=== PATIENT | male | born 1995 | race Caucasian/White ===

== ENCOUNTER 2024-07-31 07:42 | Emergency (ER) | payer SELFPAY ==
[2024-07-31 07:43] VITALS: BP 138/91; PULSE 102; RESP 16; TEMP 37.2; O2SAT 100; BMI 22.1
--- NOTE | 2024-07-31 08:00 | EX.ED.DYSGE1 ---
HPI History of Present Illness Chief Complaint: General Illness Informant: patient Narrative Narrative: Healthy 29-year-old 3-4 days of subjective fevers and chills, generalized weakness, myalgias, headaches, rhinorrhea, nasal congestion, cough. No dyspnea. No chest discomfort. No GI symptoms. Has been around someone else with cold symptoms recently. Has not done any home testing yet. PFSH PFSH Medical History no medical history no medical history Allergy/AdvReac Type Severity Reaction Status Date / Time pineapple Allergy Intermediate Hives Verified 07/31/24 07:47 Social History Smoking Status: Current every day smoker tobacco type: e-cigarettes ROS ROS ED Constitutional Constitutional ED: Reports body ache(s), chills, fever(s), subjective and weakness ENT ENT ED: Reports nasal congestion and rhinorrhea; Denies ear pain, sinus pain or sore throat Cardiovascular Cardiovascular: Denies chest pain or palpitations Respiratory/Chest Respiratory/Chest: Reports cough; Denies dyspnea Gastrointestinal Gastrointestinal: Denies abdominal pain, diarrhea, nausea or vomiting Genitourinary Genitourinary ED: Denies dysuria or hematuria Musculoskeletal Musculoskeletal: Reports myalgias; Denies back pain or neck pain Integumentary Denies abscess or rash Neurologic Neurologic: Reports headache(s); Denies paresthesias or weakness Endocrine Endocrinology: Denies polydipsia or polyuria EXAM Physical Exam Const Vital Signs: 07/31/24 07:43 Temperature 99 F Temperature Source Oral Pulse Rate 102 H Respiratory Rate 16 Blood Pressure 138/91 H Blood Pressure Mean 106 Pulse Ox 100 Oxygen Delivery Method Room Air Positive well nourished and well developed General Appearance ED: well developed and NAD HEENT Reports moist mucous membranes HEENT Narrative: nml speech, no stridor normocephalic and atraumatic Eyes PERRL and EOMs intact bilaterally Neck no lymphadenopathy, supple and no meningeal signs Resp normal respiratory effort and clear to auscultation bilaterally Cardio no murmurs Rate: regular rate; Negative for tachycardic Rhythm: regular rhythm Neuro oriented x3, CN's II-XII intact bilaterally and no sensory deficits noted Sensorium / Orientation: alert Motor Exam: strength 5/5 throughout Psych mental status grossly normal Skin Lesions: no lesions Rashes: no rashes MDM MDM MDM Narrative Medical decision making narrative: Patient's exam is benign, his pulse ox is 100 on room air, and his symptoms are consistent with a viral syndrome, such as COVID. Performed COVID/influenza/RSV swab and he was amenable to a dose of Toradol. The swab is positive for RSV. Given appropriate discharge instructions. Discharge Plan Triage Chief Complaint: General Illness ED Provider: Jesse Mabry Dx/Rx/DC Orders Clinical Impression: Respiratory syncytial virus infection Instructions: RSV (Respiratory Syncytial Virus) Primary Care Provider: Care Physician,No Primary Referrals: Doctor,Your [Non-Staff] - 10-14 Days if not better Activity Restrictions/Additional Instructions: RSV basically causes a bad cold. Take [id number] cold and flu medications, ibuprofen or Aleve as needed for aches and pains, headaches, and drink plenty of fluids. Print Language: American Disposition Disposition: Home, Self Care
== END 2024-07-31 09:16 | disposition home or self-care (01) ==
PROVIDERS: Emergency Provider Emergency Medicine; Visit Provider Emergency Medicine
DX: J06.9 Acute upper respiratory infection, unspecified (principal); B97.4 Respiratory syncytial virus as the cause of diseases classified elsewhere; R51.9 Headache, unspecified; F17.290 Nicotine dependence, other tobacco product, uncomplicated
CPT/HCPCS: 87631; 96372; 99282

== ENCOUNTER 2024-09-11 10:09 | Emergency (ER) | payer SELFPAY ==
[2024-09-11 10:09] VITALS: BP 109/79; PULSE 109; RESP 14; TEMP 37.5; O2SAT 98; BMI 22.9
[2024-09-11 10:18] VITALS: O2SAT 98
--- NOTE | 2024-09-11 10:20 | ED.RN ---
FRIENDS AND PEOPLE AT HOME HAVE BEEN SICK. HERE WITH PT IN ROOM 10 TODAY. N/V/D AND BODY ACHES. PT 98% RA AND VITALS ARE STABLE. EATING AND DRINK HAS BEEN DECREASED. S/SX HAVE BEEN PRESENT FOR 3 DAYS
--- NOTE | 2024-09-11 10:45 | EDS_ITS ---
HPI HPI - URI History of Present Illness Chief Complaint: Shortness of Breath Informant: patient Narrative Narrative: Patient is a 29 year old male with history of depression presenting from home with 3 days of flu like illness. He states that he has been sick for 3 days. Reports chills, initially vomiting x 7 on the first day, myalgias, fatigue and decreasedappetite. States that he works at [employer] and today felt too weak to get out of bed. He does report a cough. Has had mild diarrhea. Notes that allot of his symptoms are steady/slowly improving. Reports multiple sick contacts. Symptoms improved with DayQuil/Nyquil. ROS ROS ED Constitutional Constitutional ED: Reports chills, fever(s), sweats and other Details: decreased appetite Eyes Eyes: Denies change in vision ENT ENT ED: Reports sore throat; Denies rhinorrhea Cardiovascular Cardiovascular: Denies chest pain or palpitations Respiratory/Chest Respiratory/Chest: Reports cough and dyspnea; Denies sputum Gastrointestinal Gastrointestinal: Reports diarrhea, nausea and vomiting; Denies abdominal pain Musculoskeletal Musculoskeletal: Reports myalgias Integumentary Denies rash Neurologic Neurologic: Reports weakness PFSH PFSH Home Medications ?Medication ?Instructions ?Recorded ?Last Taken ?Type ibuprofen 600 mg tablet 600 mg PO Q6H PRN fever or p ain 09/11/24 Unknown Rx #20 tabs Allergy/AdvReac Type Severity Reaction Status Date / Time pineapple Allergy Intermediate Hives Verified 09/11/24 10:21 Social History Smoking Status: Current every day smoker tobacco type: e-cigarettes EXAM Physical Exam Const Vital Signs: 09/11/24 10:09 09/11/24 10:18 09/11/24 11:16 Temperature 99.5 F H 97.6 F L Temperature Source Oral Pulse Rate 109 H 100 Respiratory Rate 14 16 Respiratory Effort Normal Respiratory Depth Normal Respiratory Pattern Normal Blood Pressure 109/79 99/63 Blood Pressure Mean 89 75 Pulse Ox 98 97 Oxygen Delivery Method Room Air Room Air Positive well nourished and well developed General Appearance ED: well developed and NAD HEENT Reports moist mucous membranes HEENT Narrative: normal TMs Injection of the posterior oropharynx. Uvula midline. No swelling/exudate. normocephalic and atraumatic Neck no lymphadenopathy, supple and no meningeal signs Resp normal respiratory effort and clear to auscultation bilaterally Auscultation: Negative for rales, rhonchi or wheezes Cardio no murmurs Rate: regular rate Rhythm: regular rhythm GI non-tender and non-distended Extremity normal to inspection Neuro oriented x3 Sensorium / Orientation: alert Motor Exam: Negative for general weakness Psych mental status grossly normal Skin Rashes: no rashes MDM MDM MDM Narrative Medical decision making narrative: Patient evaluated for 3 days of flu like illness. Clinically suspect influenza given symptoms and large community spread at this time. He is 98% on room air and has clear breath sounds. Do not suspect PNA or think CXR needed at this time. He appears well hydrated and I do not think IVF are indicated. Given Motrin 600mg. Will be given a work note. Given return precautions. I do not think that Flu swab is needed as he is out of the window for Tamiflu and does not have risk factors for severe disease. Discharge Plan Triage Chief Complaint: Shortness of Breath ED Provider: Mariposa Taveras Dx/Rx/DC Orders Clinical Impression: Flu-like symptoms Instructions: ED Influenza (Adult) Prescriptions: New ibuprofen 600 mg tablet 600 mg PO Q6H PRN (Reason: fever or pain) Qty: 20 0RF Stand Alone Forms: ED Work / School Excuse Primary Care Provider: Care Physician,No Primary Referrals: Peyton Brady [Non-Staff] - Care Physician,No Primary [Primary Care Provider] - Activity Restrictions/Additional Instructions: Continue to push fluids. Alternated Dayquil with Ibuprofen for symptoms. Print Language: Liberian Disposition Disposition: Home, Self Care Discharge Date/Time: 09/11/24 11:17
[2024-09-11] MEDS: Ibuprofen 600 MG Tablet PO (11:07)
[2024-09-11 11:16] VITALS: BP 99/63; PULSE 100; RESP 16; TEMP 36.4; O2SAT 97
== END 2024-09-11 11:17 | disposition home or self-care (01) ==
PROVIDERS: Emergency Provider Emergency Medicine; Visit Provider Emergency Medicine
DX: R06.02 Shortness of breath (principal); R19.7 Diarrhea, unspecified; F17.290 Nicotine dependence, other tobacco product, uncomplicated; R11.2 Nausea with vomiting, unspecified
CPT/HCPCS: 99282